=== PATIENT | male | born 2000 | race Caucasian/White ===

== ENCOUNTER 2021-06-14 21:56 | Emergency (ER) | payer OTHER ==
[~2021-06-14] VITALS: Ht 177.8 cm; Wt 70.5 kg
[2021-06-14 23:50] VITALS: BP 118/62; PULSE 61; TEMP 97.5
== END 2021-06-14 23:50 | disposition home or self-care (01) ==
LOC: COL.ER 21:56
DX: L72.0 Epidermal cyst (principal)